=== PATIENT | male | born 1965 | race Caucasian/White ===

== ENCOUNTER 2019-04-27 08:04 | Day surgery (SDC) | payer OTHER ==
[~2019-04-27 08:04] MED LIST: PROPOFOL INJ 200 MG/20 ML VIAL IV ONE
[2019-04-27] MEDS ORDERED: SIMETHICONE 80 MG TAB.CHEW ONE (10:13)
--- NOTE | 2019-04-27 11:28 | Operative Report ---
Operative Report DATE OF SURGERY: 04/27/19 Operative Report: The risks, benefits and alternatives of the procedure including the risk of bleeding, perforation requiring surgery have been explained to the patient in detail and informed consent has been obtained. Patient is taken back to the endoscopy suite and placed in the left, lateral decubital position. Timeout was called. Propofol medication is administered. Rectal examination is done which did not reveal any masses, tears or fissures. An Olympus videoscope was introduced into the patient's rectum. The scope was then carefully advanced all the way to the cecum. The cecum was identified by the usual anatomical landmarks including the ileocecal valve as well as the appendiceal office. Photodocumentation is obtained. The scope was then sequentially pulled back via the various segments of the colon including the ascending colon, hepatic flexure, transverse colon, splenic flexure, descending colon and finally into the rectosigmoid portions of the colon. Retroflexion maneuvers performed. The risks benefits and alternatives of the procedure explained to the patient in detail and informed consent is obtained .A GIF Olympus video scope was inserted into the patient's mouth and hypopharynx ,the esophagus is identified intubated and insufflated, the scope was then advanced through the esophagus stomach and duodenum, retroflexion maneuver is done ,the esophagus stomach and first and second portions of the duodenum examined. PREOPERATIVE DIAGNOSIS: Personal history of polyp. Dyspepsia POSTOPERATIVE DIAGNOSIS: Diverticulosis without any evidence of diverticulitis. Internal hemorrhoids. Inflammation noted on the right-hand side of the colon status post biopsy. Gastritis status post biopsy rule out Helicobacter pylori OPERATION: Colonoscopy with biopsy. EGD with biopsy SURGEON: VETO ARGUELLO ANESTHESIA: LMAC TISSUE REMOVED OR ALTERED: As noted above. COMPLICATIONS: None. ESTIMATED BLOOD LOSS: None. INTRAOPERATIVE FINDINGS: As noted above. PROCEDURE: Patient tolerated the procedure well. No immediate postprocedure complications are noted. Patient is discharged in good condition. Discharge date 04/27/2019. Discharge diet: Regular. Discharge activity: Regular. 2 to 3-week follow-up to discuss findings. Patient is instructed to call the office or proceed to the emergency room should there be any further problems or questions. Depending on the pathology of the polyp future surveillance can be planned. Likely can have 10-year surveillance.
[2019-04-27 11:37] VITALS: BP 134/77
== END 2019-04-27 10:47 | disposition home or self-care (01) ==
LOC: END 08:04
PROVIDERS: ATTEND Internal Medicine Gastroenterology
DX: K29.50 Unspecified chronic gastritis without bleeding (principal); K57.30 Diverticulosis of large intestine without perforation or abscess without bleeding; Z86.010 Personal history of colon polyps; K64.8 Other hemorrhoids; K52.9 Noninfective gastroenteritis and colitis, unspecified; I10 Essential (primary) hypertension; G47.33 Obstructive sleep apnea (adult) (pediatric)
CPT/HCPCS: 88342 ×2; 88305 ×2; 00813; J2704; 43239; 45380; 813

== ENCOUNTER 2019-04-28 13:57 | Emergency (ER) | payer OTHER ==
[2019-04-28 14:04] VITALS: BP 146/88
--- NOTE | 2019-04-28 14:34 | ER Document Report ---
ED Medical Screen (RME) - General Chief Complaint: Vomiting Stated Complaint: VOMITING Time Seen by Provider: 04/28/19 14:25 Mode of Arrival: Ambulatory Information source: Patient Notes: Patient presents emergency department with complaints of abdominal pain generalized vomiting. Patient reports he had a EGD and colonoscopy yesterday. He reports he is vomiting whenever he tries to drink something and is also had some loose stools. He denies fever. He reports he had the procedure because they thought he might of had a hernia. I have greeted and performed a rapid initial assessment of this patient. A comprehensive ED assessment and evaluation of the patient, analysis of test results and completion of the medical decision making process will be conducted by additional ED providers. Dictation of this chart was performed using voice recognition software; therefore, there may be some unintended grammatical errors. TRAVEL OUTSIDE OF THE [place] IN LAST 30 DAYS: No - Related Data Allergies/Adverse Reactions: No Known Allergies Allergy (Verified 04/28/19 13:58) Past Medical History - Past Medical History Cardiac Medical History: Reports: Hx Coronary Artery Disease, Hx Hypertension Denies: Hx Heart Attack Pulmonary Medical History: Denies: Hx Asthma, Hx Bronchitis, Hx COPD, Hx Pneumonia Neurological Medical History: Denies: Hx Cerebrovascular Accident, Hx Seizures Musculoskeltal Medical History: Denies Hx Arthritis - Immunizations Hx Diphtheria, Pertussis, Tetanus Vaccination: Yes Influenza Administration Date for 06/2017 - 11/2017 Season: 06/26/18 Physical Exam - Vital signs Vitals: Temp Pulse Resp BP Pulse Ox 97.5 F 100 16 146/88 H 94 04/28/19 14:02 04/28/19 14:02 04/28/19 14:02 04/28/19 14:02 04/28/19 14:02 Course - Vital Signs Vital signs: Temp Pulse Resp BP Pulse Ox 97.5 F 100 16 146/88 H 94 04/28/19 14:02 04/28/19 14:02 04/28/19 14:02 04/28/19 14:02 04/28/19 14:02
[2019-04-28 15:37] LABS: ABSOLUTE EOSINOPHILS # (AUTO) 0.1 10^3/uL (0.0-0.6); ABSOLUTE MONOCYTES (AUTO) 0.7 10^3/uL (0.1-1.4); ABSOLUTE NEUT (AUTO) 10.7 10^3/uL (1.7-8.2); BASOPHILS % (AUTO) 0.2 % (0-2); EOSINOPHILS % (AUTO) 1.2 % (0-6); HEMATOCRIT 48.9 % (37.9-51.0); LYMPHOCYTES % (AUTO) 7.7 % (13-45); MEAN CORPUSCULAR HEMOGLOBIN 30.9 pg (27.0-33.4); MEAN CORPUSCULAR HGB CONC 34.7 g/dL (32.0-36.0); MEAN CORPUSCULAR VOLUME 89 fl (80-97); MONOCYTES % (AUTO) 5.7 % (3-13); PLATELET COUNT 218 10^3/uL (150-450); RED BLOOD COUNT 5.51 10^6/uL (4.35-5.55); RED CELL DISTRIBUTION WIDTH 13.3 % (11.5-14.0); SEGMENTED NEUTROPHILS % (AUTO) 85.2 % (42-78); TOTAL CELLS COUNTED % (AUTO) 100 %; WHITE BLOOD COUNT 12.5 10^3/uL (4.0-10.5)
[2019-04-28 15:42] LABS: APPEARANCE,URINE SLIGHTLY-CLOUDY; BILIRUBIN,URINE SMALL (NEGATIVE); COLOR,URINE AMBER; GLUCOSE, URINE NEGATIVE (NEGATIVE); KETONES,URINE 20 mg/dL (NEGATIVE); LEUKOCYTE ESTERASE,URINE NEGATIVE (NEGATIVE); NITRITE,URINE NEGATIVE (NEGATIVE); PROTEIN,URINE 30 mg/dL (NEGATIVE); URINE SPECIFIC GRAVITY 1.025
[2019-04-28 15:49] LABS: ALBUMIN 4.9 g/dL (3.5-5.0); ALKALINE PHOSPHATASE 97 U/L (38-126); ANION GAP 13 (5-19); ASPARTATE AMINO TRANSFERASE 44 U/L (17-59); BILIRUBIN,DIRECT 0.4 mg/dL (0.0-0.4); BLOOD UREA NITROGEN 35 mg/dL (7-20); CALCIUM 9.9 mg/dL (8.4-10.2); CARBON DIOXIDE 29 mmol/L (22-30); CHLORIDE 98 mmol/L (98-107); GLUCOSE 119 mg/dL (75-110); POTASSIUM 5.1 mmol/L (3.6-5.0); TOTAL PROTEIN 8.1 g/dL (6.3-8.2)
[2019-04-28] MEDS ORDERED: NORMAL SALINE 1000 ML 1,000 ML IV ONE (17:11)
[2019-04-28] MEDS ORDERED: DIPHENHYDRAMINE HCL 50 MG/ML VIAL IV ONE (17:11)
[2019-04-28] MEDS ORDERED: METOCLOPRAMIDE HCL INJ/PF 10 MG/2 ML SDV IV ONE (17:11)
--- NOTE | 2019-04-28 17:27 | RADIOLOGY REPORT (SQ) ---
EXAM DESCRIPTION: ACUTE ABDOMEN SERIES COMPLETED DATE/TIME: 04/28/2019 5:04 pm REASON FOR STUDY: s/p UGI, colonoscopy, vomiting COMPARISON: None. NUMBER OF VIEWS: Three views. TECHNIQUE: PA chest, supine abdomen and upright/decubitus abdomen radiographic images acquired. LIMITATIONS: None. FINDINGS: CHEST: Bilateral pleural thickening, possible small effusions. FREE AIR: None. No abnormal gas collections. BOWEL GAS PATTERN: There are numerous gas filled borderline distended small bowel loops with air-flui d levels over the mid abdomen. CALCIFICATIONS: No suspicious calcifications. HARDWARE: None in the abdomen. SOFT TISSUES: No gross mass or suggestion of organomegaly. BONES: No acute fracture. No worrisome bone lesions. OTHER: No other significant finding. IMPRESSION: There are numerous gas filled borderline distended small bowel loops with air-fluid leve ls over the mid abdomen. Bilateral pleural thickening, possible small effusions. TECHNICAL DOCUMENTATION: JOB ID: [id number] [id number] 2010 [employer]- All Rights Reserved Reading location - IP/workstation name: @[email or web address]
--- NOTE | 2019-04-28 18:09 | ER Document Report ---
ED General - General Chief Complaint: Vomiting Stated Complaint: VOMITING Time Seen by Provider: 04/28/19 14:25 Mode of Arrival: Ambulatory Notes: 53-year-old male presents emergency department after having an EGD and a colonoscopy performed yesterday. Patient states that as soon as he woke up he started vomiting. Was given some gas pills to help but did not try any antiemetics. States that the vomiting has persisted since yesterday. Patient is concerned he may becoming severely dehydrated as he has not had anything to eat in several days because he had to do the colonoscopy prep 2 days ago and then had a colonoscopy yesterday and has not been able to tolerate any oral intake today. Complains of abdominal distention and mild to moderate aching abdominal pain. States it is worse than it has been in the past after other EGDs and colonoscopies. States he is still having liquid stools. Denies any blood in his vomit. TRAVEL OUTSIDE OF THE [place] IN LAST 30 DAYS: No - Related Data Allergies/Adverse Reactions: No Known Allergies Allergy (Verified 04/28/19 13:58) Past Medical History - General Information source: Patient - Social History Smoking Status: Never Smoker Chew tobacco use (# tins/day): No Frequency of alcohol use: Occasional Drug Abuse: None Family History: Reviewed & Not Pertinent Patient has suicidal ideation: No Patient has homicidal ideation: No - Past Medical History Cardiac Medical History: Reports: Hx Coronary Artery Disease, Hx Hypertension Denies: Hx Heart Attack Pulmonary Medical History: Denies: Hx Asthma, Hx Bronchitis, Hx COPD, Hx Pneumonia Neurological Medical History: Denies: Hx Cerebrovascular Accident, Hx Seizures Renal/ Medical History: Denies: Hx Peritoneal Dialysis Musculoskeletal Medical History: Denies Hx Arthritis - Immunizations Hx Diphtheria, Pertussis, Tetanus Vaccination: Yes Hx Pneumococcal Vaccination: 09/26/16 Review of Systems - Review of Systems Constitutional: No symptoms reported Gastrointestinal: See HPI -: Yes All other systems reviewed and negative Physical Exam - Vital signs Vitals: Temp Pulse Resp BP Pulse Ox 97.5 F 100 16 146/88 H 94 04/28/19 14:02 04/28/19 14:02 04/28/19 14:02 04/28/19 14:02 04/28/19 14:02 Interpretation: Hypertensive - Notes Notes: GENERAL: Alert, interacts well. No acute distress. HEAD: Normocephalic, atraumatic EYES: Pupils equal, round and reactive to light, extraocular movements intact. ENT: Oral mucosa moist, tongue midline. NECK: Full range of motion, supple, trachea midline. LUNGS: Clear to auscultation bilaterally, no wheezes, rales or rhonchi, no respiratory distress. HEART: Regular rate and rhythm, no murmurs, gallops, rubs. ABDOMEN: Soft, nontender, mildly distended, bowel sounds present in all 4 quadrants. EXTREMITIES: Moves all 4 extremities spontaneously, no edema, radial and dorsalis pedis pulses 2/4 bilaterally. No cyanosis. NEUROLOGICAL: Alert and oriented x3, normal speech. PSYCH: Normal mood, normal affect. SKIN: Warm, Dry, normal turgor, no rashes or lesions noted. Course - Re-evaluation Re-evalutation: 04/28/19 18:02 CBC shows leukocytosis at 12.5, likely postoperative/demargination related to the EGD and colonoscopy, potassium mildly elevated at 5.1, BUN and creatinine mildly elevated at 35 and 1.26, this could be related to dehydration from the recent prep and inability to tolerate oral intake, urinalysis shows 20 ketones, no signs of infection. Acute abdominal series shows numerous gas-filled borderline distended small bowel loops with air-fluid levels over the mid abdomen. Discussed this x-ray finding with Dr. Guzman the radiologist who read it and he states it looks relatively atypical for small bowel obstruction and suspects it is likely related to the recent EGD and colonoscopy. Based off of this I will proceed with trial of Reglan and Benadryl to increase GI motility as well as trial of oral intake. If he passes the oral intake trial we will discharge him to home with Zofran and close follow-up. Patient is agreeable to this plan. 04/28/19 18:39 Patient is just now getting his Reglan and Benadryl as well as the IV fluids. After 20 to 30 minutes he will be tried on an oral challenge. If he tolerates this well then he will be discharged home with Reglan, if he has persistent vomiting then he will be reevaluated for possible admission versus more me dication. - Vital Signs Vital signs: Temp Pulse Resp BP Pulse Ox 97.5 F 100 16 146/88 H 94 04/28/19 14:02 04/28/19 14:02 04/28/19 14:02 04/28/19 14:02 04/28/19 14:02 - Laboratory Result Diagrams: 04/28/19 15:19 04/28/19 15:19 Laboratory results interpreted by me: 04/28/19 04/28/19 04/28/19 15:19 15:19 15:19 WBC 12.5 H Seg Neutrophils % 85.2 H Lymphocytes % 7.7 L Absolute Neutrophils 10.7 H Potassium 5.1 H BUN 35 H Creatinine 1.26 H Glucose 119 H Total Bilirubin 2.0 H Urine Protein 30 H Urine Ketones 20 H Urine Bilirubin SMALL H Urine Urobilinogen 4.0 H Discharge - Discharge Clinical Impression: Gas after colonoscopy Nausea and vomiting Qualifiers: Vomiting type: unspecified Vomiting Intractability: non-intractable Qualified Code(s): R11.2 - Nausea with vomiting, unspecified Condition: Stable Disposition: HOME, SELF-CARE Additional Instructions: Please return if you develop fever, further vomiting, increasing pain or any new or concerning symptoms. Please walk as often as you can tolerate as this will help to move the gas out of your body more quickly. Please avoid soda and other gas-containing drinks. Please also avoid very gassy foods such as cabbage and beans for the next few days. You may take the Reglan 1 tablet every 6 hours as needed for nausea. If it makes you feel at all anxious you may also take 1 [id number] capsule of Benadryl 25 mg whenever you take the Reglan. Prescriptions: Metoclopramide HCl [Reglan] 10 mg PO Q6HP PRN #30 tablet PRN Reason:
== END 2019-04-28 20:20 | disposition home or self-care (01) ==
LOC: ER 13:57
DX: R14.3 Flatulence (principal); R11.2 Nausea with vomiting, unspecified; I25.10 Atherosclerotic heart disease of native coronary artery without angina pectoris; I10 Essential (primary) hypertension; Z98.890 Other specified postprocedural states
CPT/HCPCS: 99283; 96361; 96374; 96375; 36415; 85025; 80053; 81001; 74022; J1200; J2765; J7030